=== PATIENT | male | born 1980 | race Caucasian/White ===

== ENCOUNTER 2017-05-25 17:41 | Emergency (ER) | payer OTHER ==
[2017-05-25] MEDS ORDERED: NS 1,000 ML IV ONE ×2 (18:10→18:38)
--- NOTE | 2017-05-25 18:21 | EDPHY ---
H & P Stated Complaint: witnessed seizure for a minute, bit tongue,AOx4 now, dizzy Time Seen by Provider: 05/25/17 18:05 HPI/ROS: CHIEF COMPLAINT: Seizure with LOC HISTORY OF PRESENT ILLNESS: This is a 36-year-old male presenting to the emergency department via EMS. Patient states he was at work when he started feeling dizzy lightheaded and weak sat himself down, witnessed seizure loss of consciousness less than 1 minute. ED arrival patient is AAO x4, states that he had similar episode back in October 2014 unknown cause. Patient states at that time in 2014 he had been off of the Wellbutrin for 2 months. This time he he has been on Wellbutrin for 3 and half weeks 150 mg once daily, patient is concerned not sure if the Wellbutrin may be a cause. Complaining at this time of intermittent headache possibly hitting the back of his head not sure. Denies any chest pain shortness of breath or dizziness REVIEW OF SYSTEMS: Constitutional: No fever, no chills. Eyes: No discharge. No blurred vision ENT: No sore throat. Cardiovascular: No chest pain, no palpitations. Respiratory: No cough, no shortness of breath. Gastrointestinal: No abdominal pain, no vomiting. Genitourinary: No hematuria. Musculoskeletal: No back pain. Skin: No rashes. Neurological: Occipital headache. Source: Patient, Family - Personal History Current Tetanus/Diphtheria Vaccine: Yes - Medical/Surgical History Hx Asthma: No Hx Chronic Respiratory Disease: No Hx Diabetes: No Hx Cardiac Disease: No Hx Renal Disease: No Hx Cirrhosis: No Hx Alcoholism: No Hx HIV/AIDS: No Hx Splenectomy or Spleen Trauma: No Other PMH: idiopathic seizure (2014). anxiety/wisdom teeth - Social History Smoking Status: Current some day smoker - Physical Exam Exam: General Appearance: Alert, no distress. Non ill-appearing nontoxic. Eyes: Pupils equal and round no pallor or injection. ENT, Mouth: Mucous membranes moist. Small abrasion noted to the left lateral aspect of tongue no lacerations. Respiratory: There are no retractions, lungs are clear to auscultation. Cardiovascular: Regular rate and rhythm. Gastrointestinal: Abdomen is soft and nontender, no masses, bowel sounds normal. Neurological: No focal deficits. All cranial nerves intact. Gross and fine motor skills intact. Answering questions appropriately Skin: Warm and dry, no rashes. Musculoskeletal: Vertebral cervical spine nontender on palpation full range of motion. Extremities: symmetrical, full range of motion. Psychiatric: Patient is oriented X 3, acting appropriately Constitutional: Initial Vital Signs Temperature (C) 37.2 C 05/25/17 17:55 Heart Rate 103 H 05/25/17 17:55 Respiratory Rate 20 05/25/17 17:55 Blood Pressure 128/66 H 05/25/17 17:55 O2 Sat (%) 86 L 05/25/17 17:55 O2 Delivery Mode Room Air O2 (L/minute) 2 Allergies/Adverse Reactions: No Known Allergies Allergy (Unverified 11/27/14 18:26) Home Medications: Medication Instructions Recorded Xanax 11/27/14 Medical Decision Making - Diagnostics Imaging Results: Imaging Impressions Head CT 05/25/17 18:19 Impression: There is no acute abnormality identified on this unenhanced CT evaluation. If there is further clinical concern regarding the patient's symptoms, MR imaging is suggested, if not otherwise contraindicated. Findings were discussed with Maren Naylor NP at 19:30, on 05/25/2017. ED Course/Re-evaluation: Discussed ED plan of care: EKG, CBC, CMP, troponin, CT head, UA 1935: Spoke with Dr. Pierre CT head negative 1950: Discussed all results and CT head with patient. Discharge home---> stable, discussed all discharge instructions with patient, call Neurology in the morning for follow-up appointment for further evaluation. We also discussed driving or using heavy equipment until further evaluation with Neurology Differential Diagnosis: Other differential diagnosis considered but not limited to electrolyte imbalance , subarachnoid hemorrhage, and heat stroke - Data Points Laboratory Results: Laboratory Results 05/25/17 17:50 05/25/17 17:50 05/25/17 05/25/17 05/25/17 18:35 17:50 17:50 WBC 12.87 10^3/uL H 10^3/uL (3.80-9.50) RBC 5.56 10^6/uL 10^6/uL (4.40-6.38) Hgb 16.8 g/dL g/dL (13.7-17.5) Hct 50.6 % % (40.0-51.0) MCV 91.0 fL fL (81.5-99.8) MCH 30.2 pg pg (27.9-34.1) MCHC 33.2 g/dL g/dL (32.4-36.7) RDW 13.1 % % (11.5-15.2) Plt Count 284 10^3/uL 10^3/uL (150-400) MPV 10.3 fL fL (8.7-11.7) Neut % (Auto) 51.2 % % (39.3-74.2) Lymph % (Auto) 39.5 % % (15.0-45.0) [place] % (Auto) 7.8 % % (4.5-13.0) Eos % (Auto) 0.8 % % (0.6-7.6) Baso % (Auto) 0.3 % % (0.3-1.7) Nucleat RBC Rel Count 0.0 % % (0.0-0.2) Absolute Neuts (auto) 6.59 10^3/uL H 10^3/uL (1.70-6.50) Absolute Lymphs (auto) 5.08 10^3/uL H 10^3/uL (1.00-3.00) Absolute Monos (auto) 1.01 10^3/uL H 10^3/uL (0.30-0.80) Absolute Eos (auto) 0.10 10^3/uL 10^3/uL (0.03-0.40) Absolute Basos (auto) 0.04 10^3/uL 10^3/uL (0.02-0.10) Absolute Nucleated RBC 0.00 10^3/uL 10^3/uL (0-0.01) Immature Gran % 0.4 % % (0.0-1.1) Immature Gran # 0.05 10^3/uL 10^3/uL (0.00-0.10) Sodium 147 mEq/L H mEq/L (134-144) Potassium 4.5 mEq/L mEq/L (3.5-5.2) Chloride 107 mEq/L mEq/L (97-110) Carbon Dioxide 6 mEq/l L* mEq/l (22-31) Anion Gap 34 mEq/L H mEq/L (8-16) BUN 19 mg/dL mg/dL (7-23) Creatinine 1.7 mg/dL H mg/dL (0.7-1.3) Estimated GFR 46 Glucose 64 mg/dL L mg/dL (70-100) Calcium 10.4 mg/dL mg/dL (8.5-10.4) Total Bilirubin 0.9 mg/dL mg/dL (0.1-1.4) AST 43 IU/L IU/L (17-59) ALT 42 IU/L IU/L (21-72) Alkaline Phosphatase 87 IU/L IU/L (38-126) Troponin I < 0.012 ng/mL ng/mL (0-0.034) Total Protein 9.1 g/dL H g/dL (6.3-8.2) Albumin 5.7 g/dL H g/dL (3.5-5.0) Urine Color YELLOW Urine Appearance CLEAR Urine pH 5.0 (5.0-7.5) Ur Specific [place] 1.016 (1.002-1.030) Urine Protein 1+ H (NEGATIVE) Urine Ketones NEGATIVE (NEGATIVE) Urine Blood NEGATIVE (NEGATIVE) Urine Nitrate NEGATIVE (NEGATIVE) Urine Bilirubin NEGATIVE (NEGATIVE) Urine Urobilinogen NEGATIVE EU EU (0.2-1.0) Ur Leukocyte Esterase NEGATIVE (NEGATIVE) Urine RBC 1-3 /hpf /hpf (0-3) Urine WBC 1-3 /hpf /hpf (0-3) Ur Epithelial Cells NONE SEEN /lpf /lpf (NONE-1+) Urine Bacteria TRACE /hpf H /hpf (NONE SEEN) Urine Glucose NEGATIVE (NEGATIVE) Medications Given: Discontinued Medications Diazepam (Valium Injection) 5 mg IVP EDNOW ONE Stop: 05/25/17 18:37 Last Admin: 05/25/17 18:44 Dose: 5 mg Sodium Chloride (Ns) 1,000 mls @ 0 mls/hr IV ONCE ONE PRN Reason: Wide Open Stop: 05/25/17 18:11 Last Admin: 05/25/17 18:10 Dose: 1,000 mls Sodium Chloride (Ns) 1,000 mls @ 0 mls/hr IV ONCE ONE PRN Reason: Wide Open Stop: 05/25/17 18:39 Last Admin: 05/25/17 18:43 Dose: 1,000 mls Ondansetron HCl (Zofran Odt) 4 mg PO EDNOW ONE Stop: 05/25/17 19:52 Last Admin: 05/25/17 20:14 Dose: 4 mg Departure - Departure Disposition: Home, Routine, Self-Care Clinical Impression: Seizure Condition: Good Instructions: Recurrent Seizures in Adults (ED) Additional Instructions: 1. I have given you number to follow up with Neurology 2. No driving or operating heavy machinery until you have been a further evaluated with Neurology 3. Ibuprofen or Tylenol as needed 4. Rest Referrals: Patient,NotPresent [Unknown] - As per Instructions Manuel Lund DO [Doctor of Osteopathy] - As per Instructions Mark Mcgowan DO [Medical Doctor] - As per Instructions Stand Alone Forms: Work Limited Duty, Work Excuse
[2017-05-25 18:25] LABS: % IMMATURE GRANULYOCYTES 0.4 % (0.0-1.1); ABSOLUTE IMMATURE GRANULOCYTES 0.05 10^3/uL (0.00-0.10); ADD DIFF? NO; ADD MORPH? NO; ADD SCAN? NO; ATYPICAL LYMPHOCYTE FLAG 30 (0-99); FRAGMENT RBC FLAG 0 (0-99); HEMATOCRIT 50.6 % (40.0-51.0); HEMOGLOBIN 16.8 g/dL (13.7-17.5); LEFT SHIFT FLG 0 (0-99); LIPEMIA HEMOLYSIS FLAG 80 (0-99); MEAN CELL HEMOGLOBIN 30.2 pg (27.9-34.1); MEAN CELL HEMOGLOBIN CONCENTR. 33.2 g/dL (32.4-36.7); MEAN PLATELET VOLUME 10.3 fL (8.7-11.7); PLATELET CLUMPS FLAG 0 (0-99); PLATELET COUNT 284 10^3/uL (150-400); RED BLOOD CELL COUNT 5.56 10^6/uL (4.40-6.38); RED CELL DISTRIBUTION WIDTH 13.1 % (11.5-15.2)
[2017-05-25 18:31] LABS: ALANINE AMINOTRANSFERASE 42 IU/L (21-72); ALBUMIN 5.7 g/dL (3.5-5.0); ALKALINE PHOSPHATASE 87 IU/L (38-126); ANION GAP 34 mEq/L (8-16); ASPARTATE AMINOTRANSFERASE 43 IU/L (17-59); BILIRUBIN,TOTAL 0.9 mg/dL (0.1-1.4); CALCIUM 10.4 mg/dL (8.5-10.4); CHLORIDE 107 mEq/L (97-110); CREATININE 1.7 mg/dL (0.7-1.3); GLOMERULAR FILTRATION RATE 46; GLUCOSE 64 mg/dL (70-100); POTASSIUM 4.5 mEq/L (3.5-5.2); SODIUM 147 mEq/L (134-144); TOTAL PROTEIN 9.1 g/dL (6.3-8.2)
--- NOTE | 2017-05-25 18:31 | CPEKG ---
Heart Rate: 87 RR Interval: 690 P-R Interval: 160 QRSD Interval: 98 QT Interval: 356 QTC Interval: 429 P [place]: 44 QRS [place]: -48 T Wave [place]: 5 EKG Severity - ABNORMAL ECG - EKG Impression: SINUS RHYTHM EKG Impression: LEFT ANTERIOR FASCICULAR BLOCK Electronically Signed By: Bhargav Rothman 25-May-2017 23:29:16
[2017-05-25 18:33] LABS: CARBON DIOXIDE 6 mEq/l (22-31)
[2017-05-25] MEDS ORDERED: DIAZEPAM 10 MG/2 ML SYR IVP ONE (18:36)
[2017-05-25 18:42] LABS: TROPONIN I < 0.012 ng/mL (0-0.034)
[2017-05-25 18:44] LABS: COLOR YELLOW; LEUKOCYTE ESTERASE,URINE NEGATIVE (NEGATIVE); NITRITE,URINE NEGATIVE (NEGATIVE)
[2017-05-25 19:03] LABS: BACTERIA TRACE /hpf (NONE SEEN)
[2017-05-25 19:04] VITALS: RESP 18; O2SAT 94
[2017-05-25] MEDS ORDERED: ONDANSETRON DISINTEGRATING 4 MG TAB PO ONE (19:51)
[2017-05-25 20:24] VITALS: BP 118/74; PULSE 78; TEMP 98.8
== END 2017-05-25 20:26 | disposition home or self-care (01) ==
LOC: EDUNIT#
DX: G40.909 Epilepsy, unspecified, not intractable, without status epilepticus (principal); F17.200 Nicotine dependence, unspecified, uncomplicated; R42 Dizziness and giddiness
CPT/HCPCS: 96374

== ENCOUNTER → 2017-06-06 | Outpatient (CLI) | payer OTHER ==
--- NOTE | 2017-06-06 19:38 | CPEEG ---
[f rep st] ELECTROENCEPHALOGRAM FOUR HOUR VIDEO EEG. DATE OF STUDY: 06/06/2017 INTERPRETATION: This 4-hour video EEG recording contains rare potentially epileptogenic abnormalities over the left frontal head region. These findings would be consistent with a focal seizure disorder. The patient did not have any clinical events during the video EEG monitoring session. REPORT: This 4-hour video EEG contains 9-10 Hz alpha to the posterior head regions. The background activity was normal and symmetric. The patient had no abnormal activation at rest, during photic stimulation, or hyperventilation. The patient became drowsy and fell into sustained sleep during the study. During sleep, the patient had rare left frontal sharp waves (maximal at electrode F3). For examples, please epochs 214 and 1414. The patient did not have any clinical events during the video EEG monitoring session. /[id number]/MODL MTDD
== END ==
LOC: FCPNEURO 08:18
PROVIDERS: ATTEND Psychiatry & Neurology Neurology
DX: G40.209 Localization-related (focal) (partial) symptomatic epilepsy and epileptic syndromes with complex partial seizures, not intractable, without status epilepticus (principal); Y99.0 Civilian activity done for income or pay